=== PATIENT | female | born 1995 | race Hispanic/Latino ===

== ENCOUNTER → 2019-10-14 | Outpatient (CLI) | payer OTHER ==
--- NOTE | 2019-10-14 16:59 | REP ---
Two-view chest: 10/14/2019. Indication: Chest pain. Comparison: None. Findings: The lungs are clear. There is no pleural effusion or pneumothorax. The cardiomediastinal silhouette is unremarkable. Posterior stabilization hardware is present which appears intact. Impression: No acute cardiopulmonary process. Electronically Signed by Yaya Quan DO 10/14/2019 04:51 P
== END ==
LOC: M LRY 16:30
PROVIDERS: ATTEND Physician Assistant
DX: R07.1 Chest pain on breathing (principal)
CPT/HCPCS: 71046; 93005; G0463